=== PATIENT | female | born 1975 | race Caucasian/White ===

== ENCOUNTER → 2021-05-30 | Outpatient (CLI) | payer OTHER ==
--- NOTE | 2021-05-31 07:11 | RAD ---
Three-view lumbar spine dated 05/30/2021. COMPARISON: None. INDICATION: Back pain. FINDINGS: Three-view lumbar spine show slight anterolisthesis of L3 on L4. Sagittal alignment is otherwise gaurav omic. Vertebral body heights are maintained. Mild endplate hypertrophic changes throughout. Moderate arthrosis lower lumbar apophyseal joints. IMPRESSION: 1. No acute radiographic abnormality. 2. Mild multilevel spondylosis. Electronically signed by: Warner Carmona MD (05/31/2021 7:09 AM) [id number]
--- NOTE | 2021-05-31 07:14 | RAD ---
Two-view soft tissue neck dated 05/30/2021. COMPARISON: None. INDICATION: Pain after fall. FINDINGS: Two-view soft tissue neck show evidence of prior anterior fusion from C5 to C7. Sagittal alignment is anatomic. Vertebral body heights are maintained. No prevertebral soft tissue swelling. Subglottic ai rway appears patent. No soft tissue gas. Mild hypertrophic change of the facet joints. IMPRESSION: 1. No acute radiographic abnormality. 2. Status post lower cervical fusion. Electronically signed by: Warner Carmona MD (05/31/2021 7:11 AM) [id number]
== END ==
LOC: RAD 11:21
PROVIDERS: ATTEND Family Medicine
DX: M47.816 Spondylosis without myelopathy or radiculopathy, lumbar region (principal); M47.892 Other spondylosis, cervical region; M43.16 Spondylolisthesis, lumbar region; Z98.890 Other specified postprocedural states
CPT/HCPCS: 70360; 72100

== ENCOUNTER → 2021-06-24 | Outpatient (CLI) | payer OTHER ==
--- NOTE | 2021-06-24 08:54 | RAD ---
EXAM: XR KNEE_AP BILAT STANDING, XR KNEE 1-2 VIEWS 06/24/2021 8:25 AM CLINICAL INDICATION: Chronic bilateral pain COMPARISON: None TECHNIQUE: Standing AP view of the bilateral knees. Lateral and sunrise views of the right and left knee FINDINGS: Right knee: There is moderate medial and mild lateral compartment narrowing. No acute fracture or mal alignment. No joint effusion. Left knee: There is severe medial and lateral compartment narrowing. No acute fracture. Mild degenera tive genu varum and lateral subluxation of the tibia relative to the femur. No joint effusion. IMPRESSION: Medial compartment predominant degenerative joint disease of the knees, severe on the le ft and moderate on the right. Electronically signed by: Beena Morrison MD (06/24/2021 8:52 AM) [id number]
== END ==
LOC: RAD 08:11
PROVIDERS: ATTEND Physician Assistant
DX: M17.0 Bilateral primary osteoarthritis of knee (principal); M21.162 Varus deformity, not elsewhere classified, left knee; M21.161 Varus deformity, not elsewhere classified, right knee
CPT/HCPCS: 73565; 73560-50